=== PATIENT | female | born 1990 | race Two or more races ===

== ENCOUNTER 2018-07-19 10:19 | Outpatient (CLI) | payer OTHER | END 2018-07-19 10:21 | disposition home or self-care (01) | LOC: SONOGRAMA 10:19 | DX: E04.2 Nontoxic multinodular goiter (principal) ==

== ENCOUNTER 2020-10-09 07:58 | Day surgery (SDC) | payer OTHER ==
[~2020-10-09 07:58] MED LIST: B-100 COMPLEX100 MG PO; PRENATABS RX T1 EACH PO
[2020-10-09] MEDS ORDERED: PERCOCET 5-3251 EACH PO (13:38)
== END 2020-10-09 16:45 | disposition home or self-care (01) ==
LOC: CIR.AMB 07:58
PROVIDERS: ATTEND Surgery
DX: E04.2 Nontoxic multinodular goiter (principal); Z20.828 Contact with and (suspected) exposure to other viral communicable diseases

== ENCOUNTER 2023-11-08 13:49 | Outpatient (CLI) | payer OTHER ==
[~2023-11-08 13:49] MED LIST changes: +PERCOCET 5-3251 EACH PO
== END 2023-11-08 13:52 | disposition home or self-care (01) ==
LOC: SONOGRAMA 13:49
PROVIDERS: ATTEND Pathology Anatomic Pathology & Clinical Pathology
DX: D34 Benign neoplasm of thyroid gland (principal); E07.89 Other specified disorders of thyroid; E04.2 Nontoxic multinodular goiter